=== PATIENT | female | born 1955 | race Caucasian/White ===

== ENCOUNTER → 2016-07-14 | Outpatient (CLI) | payer BC ==
[~2016-07-14] MED LIST: ALBU0.08 INH; ALBU1AER9 INH; LEVO100T7 PO; SYMIN160 INH
== END | disposition home or self-care (01) ==
LOC: C.PATHSPEC 11:38
PROVIDERS: ATTEND Obstetrics & Gynecology
DX: N84.1 Polyp of cervix uteri (principal)

== ENCOUNTER → 2016-07-14 | Outpatient (CLI) | payer BC | END | disposition home or self-care (01) | LOC: C.PAPS 11:46 | PROVIDERS: ATTEND Obstetrics & Gynecology | DX: Z01.419 Encounter for gynecological examination (general) (routine) without abnormal findings (principal) ==

== ENCOUNTER → 2016-09-01 | Outpatient (CLI) | payer BC ==
--- NOTE | 2016-09-01 14:53 | MAMMOGRAPHY REPORT ---
BILATERAL DIGITAL SCREENING MAMMOGRAM TOMOSYNTHESIS WITH CAD: 09/01/2016 CLINICAL HISTORY: Routine screening. Patient has no complaints. TECHNIQUE: Breast tomosynthesis in addition to standard 2D mammography was performed. Current study was also evaluated with a Computer Aided Detection (CAD) system. COMPARISON: Comparison is made to exams dated: 08/31/2015 mammogram, 02/26/2015 mammogram, 07/14/2014 mammogram, 12/15/2013 mammogram, 12/15/2013 stereotactic biopsy, and 11/25/2013 mammogram - [facility]. BREAST COMPOSITION: There are scattered areas of fibroglandular density in both breasts. FINDINGS: No suspicious masses, calcifications, or areas of architectural distortion are noted in e ither breast. There has been no significant interval change compared to prior exams. A biopsy marke r clip is again noted in the right central breast. Bilateral benign-appearing calcifications are no t significantly changed. IMPRESSION: ACR BI-RADS CATEGORY 2: BENIGN There is no mammographic evidence of malignancy. A 1 year screening mammogram is recommended. The p atient will receive written notification of the results. Approximately 10% of breast cancers are not detected with mammography. A negative mammographic repor t should not delay biopsy if a clinically suggestive mass is present. Clau Hayden M.D. /:09/01/2016 12:26:53 Hay Stacker Operator: Hui VANESSA(R)(M), [facility] letter sent: Normal 1/2 BI-RADS Code: ACR BI-RADS Category 2: Benign
== END | disposition home or self-care (01) ==
LOC: C.MAMM 08:52
PROVIDERS: ATTEND Internal Medicine
DX: Z12.31 Encounter for screening mammogram for malignant neoplasm of breast (principal)

== ENCOUNTER → 2017-02-05 | Outpatient (CLI) | payer BC | END | disposition home or self-care (01) | LOC: C.RDSM 13:02 | PROVIDERS: ATTEND Physical Medicine & Rehabilitation Sports Medicine | DX: M17.0 Bilateral primary osteoarthritis of knee (principal) ==

== ENCOUNTER → 2017-03-12 | Outpatient (CLI) | payer BC ==
--- NOTE | 2017-03-12 13:02 | DIAGNOSTIC IMAGING REPORT ---
CHEST 2 VIEWS ROUTINE CLINICAL HISTORY: ASTHMA EXACERBATION COMPARISON STUDY: 04/05/2015 FINDINGS: The cardiac and mediastinal contours remain stable. There is no failure. There is no focal pulmonary consolidation. There are no pleural effusions. There is an old right-sided rib fracture. Postsurgical changes are present within the cervical spine.[ IMPRESSION: No active disease in the chest. Electronically signed by: William Campbell M.D. 03/12/2017 1:00 PM Dictated Date/Time: 03/12/2017 1:00 PM
== END | disposition home or self-care (01) ==
LOC: C.RAD1850 12:16
PROVIDERS: ATTEND Internal Medicine
DX: J45.901 Unspecified asthma with (acute) exacerbation (principal)

== ENCOUNTER 2025-02-04 05:17 | Observation (INO) ==
--- NOTE | 2024-12-25 13:22 | PAT Medication Instructions ---
Medication Instructions Date of Service December 25, 2024 Home Medications Medication Instructions Recorded albuterol sulfate 90 mcg/actuation 1 inh inhalation QID PRN shortness 11/28/22 aerosol inhaler of breath or wheezing #18 grams albuterol sulfate 2.5 mg/3 mL 2.5 mg (3 mL) inhalation Q4H PRN 02/27/24 (0.083 %) solution for nebulization shortness of breath or wheezing #75 mL levothyroxine 112 mcg tablet 112 mcg PO QAM #90 tabs 04/29/24 azelastine 137 mcg (0.1 %) nasal 2 spray intranasal BID PRN nasal 05/05/24 spray congestion #30 mL bupropion HCl 150 mg 24 hr tablet, 150 mg PO QAM #90 tabs 10/13/24 extended release (Wellbutrin XL) ascorbic acid (vitamin C) 500 mg capsule 500 mg PO QAM flurbiprofen 100 mg tablet 100 mg PO BID PRN Pain multivitamin 1 tab PO QAM albuterol sulfate 90 mcg/actuation aerosol inhaler 1 inh inhalation QID PRN shortness of breath or wheezing albuterol sulfate 2.5 mg/3 mL (0.083 %) solution for nebulization 2.5 mg (3 mL) inhalation Q4H PRN shortness of breath or wheezing levothyroxine 112 mcg tablet 112 mcg PO QAM azelastine 137 mcg (0.1 %) nasal spray 2 spray intranasal BID PRN nasal congestion amitriptyline 25 mg tablet 25 mg PO HS gabapentin 300 mg capsule 300 mg PO TID bupropion HCl 150 mg 24 hr tablet, extended release (Wellbutrin XL) 150 mg PO QAM fluticasone propionate 50 mcg/actuation nasal spray,suspension 2 spray intranasal DAILY PRN Congestion 0 cholecalciferol (vitamin D3) 25 mcg (1,000 unit) capsule (Vitamin D3) 25 mcg PO QAM cyanocobalamin (vitamin B-12) 2,500 mcg sublingual tablet (Vitamin B-12) 2,500 mcg sublingual DAILY sulfamethoxazole 800 mg-trimethoprim 160 mg tablet (Bactrim DS) 1 tab PO BID UTI Continue as directed fluticasone propionate 50 mcg/actuation nasal spray,suspension 2 spray i ntranasal DAILY PRN Congestion (if needed) sulfamethoxazole 800 mg-trimethoprim 160 mg tablet (Bactrim DS) 1 tab PO BID UTI ASK your surgeon for instructions flurbiprofen 100 mg tablet 100 mg PO BID PRN Pain DO NOT take the morning of surgery ascorbic acid (vitamin C) 500 mg capsule 500 mg PO QAM multivitamin 1 tab PO QAM cholecalciferol (vitamin D3) 25 mcg (1,000 unit) capsule (Vitamin D3) 25 mcg PO QAM cyanocobalamin (vitamin B-12) 2,500 mcg sublingual tablet (Vitamin B-12) 2,500 mcg sublingual DAILY Take morning of surgery With a small sip of water, OTHERWISE NOTHING TO EAT OR DRINK AFTER MIDNIGHT: albuterol sulfate 90 mcg/actuation aerosol inhaler 1 inh inhalation QID PRN shortness of breath or wheezing (use if needed; please bring with you to hospital day of surgery if possible) albuterol sulfate 2.5 mg/3 mL (0.083 %) solution for nebulization 2.5 mg (3 mL) inhalation Q4H PRN shortness of breath or wheezing (if needed) levothyroxine 112 mcg tablet 112 mcg PO QAM azelastine 137 mcg (0.1 %) nasal spray 2 spray intranasal BID PRN nasal congestion (if needed) gabapentin 300 mg capsule 300 mg PO TID bupropion HCl 150 mg 24 hr tablet, extended release (Wellbutrin XL) 150 mg PO QAM Take evening before surgery albuterol sulfate 90 mcg/actuation aerosol inhaler 1 inh inhalation QID PRN shortness of breath or wheezing (if needed) albuterol sulfate 2.5 mg/3 mL (0.083 %) solution for nebulization 2.5 mg (3 mL) inhalation Q4H PRN shortness of breath or wheezing (if needed) azelastine 137 mcg (0.1 %) nasal spray 2 spray intranasal BID PRN nasal congestion (if needed) amitriptyline 25 mg tablet 25 mg PO HS gabapentin 300 mg capsule 300 mg PO TID Other Notes If you have any questions please call us at [phone] or [phone] or [phone] or [phone]
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
--- NOTE | 2025-02-03 15:59 | History & Physical Bridge Note ---
Date of Service February 03, 2025 History & Physical Bridge Note I have examined the patient, reviewed the History & Physical and in the interval since the performance of the History & Physical I have noted the following changes of clinical significance:Consent and site verified. Also discussed need for being compliant with rehab so she prevents arthrofibrosis. Also needs to get up and move to prevent DVT PE and to take her medications. She understands risk and consequences of infection and wound care. He is to care for her veins in her skin. no changes noted
[2025-02-04] MEDS: LR 60ML/HR IV SCH (05:55)
[2025-02-04] MEDS ORDERED: BUPIVACAINE 0.5 % 5 MG/1 ML PF 10ML VIAL ONE (06:33)
[2025-02-04] MEDS ORDERED: ROPIVACAINE 0.5% 5 MG/ML 30 ML VIAL ONE (06:33)
[2025-02-04] MEDS ORDERED: ONDANSETRON INJ 2 MG/ML 2 ML VIAL ONE (06:38)
[2025-02-04] MEDS ORDERED: PROPOFOL IV EMULSION 10 MG/ML 20 ML VIAL IV ONE (06:38)
[2025-02-04] MEDS ORDERED: MIDAZOLAM HCL 1 MG/ML 2ML VIAL ONE ×2 (06:39→06:52)
[2025-02-04] MEDS: TRANEXAMIC ACID 1,000 MG **IV Pre-op IV SCH (06:45)
[2025-02-04] MEDS: ceFAZolin 3000MG 3,000 MG/72.5 ML BAG IV SCH (07:02)
[2025-02-04] MEDS ORDERED: LIDOCAINE 2% 2 ML VIAL/AMP(20MG/ML) INFIL ONE (07:04)
[2025-02-04] MEDS ORDERED: KETAMINE HCL 10MG/ML SYR ONE (07:18)
[2025-02-04] MEDS ORDERED: ePHEDrine sulfate 50 MG/5 ML SYR ONE (07:23)
[2025-02-04] MEDS ORDERED: PHENYLEPHRINE 100MCG/ML 5ML SYR ONE (07:23)
[2025-02-04] MEDS: ORTHO JOINT ANESTHETIC ONE (07:32)
[2025-02-04] MEDS ORDERED: DEXAMETHASONE SOD INJ 4 MG/ML VIAL ONE (07:46)
[2025-02-04] MEDS ORDERED: ACETAMINOPHEN 1000 MG/100 ML IV IV ONE (08:35)
[2025-02-04] MEDS: ROPIV 0.5% 246mg, Ketorolac 30mg, EPINEPHrine 0.5mg in NSS INFIL SCH (08:43)
--- NOTE | 2025-02-04 08:46 | Post Operative Brief Note ---
Immediate Post Op Note Date of Surgery February 04, 2025 Pre & Post Diagnosis Operation Date: 02/04/25 07:00 <No data on this case meets the specified criteria> Osteoarthritis right knee tricompartmental pre and postop diagnosis same I identified the patient and participated in the time-out.: Yes Procedure Operation Date: 02/04/25 07:00 <No data on this case meets the specified criteria> Cemented right total knee replacement Surgeon Miller Tello MD [employer]ing [employer] Operator [facility] or fellow available Estimated Blood Loss 50 Findings Consistent with Post-Op Diagnosis Tricompartmental osteoarthritis Fluids 800 cc of fluid Complications None
--- NOTE | 2025-02-04 08:51 | Operative Report ---
Post Operative Report Pre & Post Diagnosis Operation Date: 02/04/25 07:00 <No data on this case meets the specified criteria> Tricompartmental osteoarthritis right knee pre and postop diagnosis same I identified the patient and participated in the time-out.: Yes Procedure Operation Date: 02/04/25 07:00 <No data on this case meets the specified criteria> Cemented right total knee replacement Surgeon Miller Tello MD [employer] Agent [place] no resident or fellow available Estimated Blood Loss 50 Findings Consistent with Post-Op Diagnosis Tricompartmental osteoarthritis Fluids 800 cc of fluid Specimens Bone pathology Drains None Complications None Indications Severe pain failed conservative management multiple years of injections oral anti-inflammatories Description of Procedure After the patient was appropriate notified site verified consent verified antibiotics confirmed to be given the right lower extremity was prepped and draped use routine fashion. Midline approach was utilized for the knee size and length of the incision appropriate for her physical size. Full-thickness flaps raised. Parapatellar arthrotomy performed. Extensive synovectomy completed the patella was encased in scar tissue required extensive mobilization. Knee was then able to be flexed with patella everted. Marginal osteophytes resected the box was filled with completely without bone. This was resected out with an osteotome. Distal femur was then entered. Tibia was then subluxated after the cruciates were resected and the menisci remnants resected. There was grade 4 disease throughout all 3 compartments. Extensive synovectomy was performed appropriate releases performed. Distal femur was then resected 11 mm proximal tibia 4 mm and the extension gap was excellent with a 5 or 6. Box cut was then made and the size 6 femur fit well. Tibia was subluxated and the size 4 tibia revision tray was utilized. It was rotating platform. Appropriate broaching and reaming was done for that. Trial reduction was then carried out with a 6 it was excellent increased and midrange stability versus the 5 so we went with a 6. The patella tracked well it was everted and resected leaving 14 to 15 mm seating holes made in the 38 button tracked well. Ortho mix was then injected all about the knee at the trial and was removed the knee was Pulsavac and soaked in Betadine for 3 minutes and then the permanent cemented into position tibia femur patella in that order at 12 minutes the tourniquet deflated minor bleeding points controlled electrocautery at 14 minutes knee was flexed no cement removal was required. Wound was irrigated with the Pulsavac Betadine and then the permanent liner seated knee reduced and closed at 40 degrees of flexion with #2 Vicryl 2-0 Vicryl and stainless to clips. Appropriate dressing was applied including a rubber Desai cotton compressive dressing based on her size and venous insufficiency. Attempted contact Nghia was done at [phone] went to voicemail. Left a voicemail. Summary of implants size 6 right femur size 4 rotating platform revision tray size 38 patella size 6.6 rotating platform stabilized polyethylene insert this is the ATT [employer]NE DeP[employer]s total knee system. EBL was 50 cc crystalloid 800 cc bone pathology pending DVT PE prophylaxis to begin tomorrow. I attest to the content of the Intraoperative Record and any orders documented therein. Any exceptions are noted below.
--- NOTE | 2025-02-04 08:51 | Orthopedic Progress Note ---
Date of Service February 04, 2025 Orthopedic Progress Note Patient underwent total knee replacement tolerated well had needed general anesthetic spinal did not work upon awakening moved all extremities. Denies chest pain shortness of breath fever chills nausea vomit headache. Postop x- rays pending. Attempt to contact family Nghia [phone] was on not successful went to [employer] left a message.
--- NOTE | 2025-02-04 08:53 | Discharge Summary ---
Date of Service February 05, 2025 Admission HPI Per Admitting Provider Osteoarthritis tricompartmental right knee Principal Diagnosis Status post total knee replacement for osteoarthritis right knee Discharge Data Allergies Allergy/AdvReac Type Severity Reaction Status Date / Time pollen extracts Allergy Intermediate ITCHY Verified 02/04/25 05:32 EYES, SNEEZING, CONGESTION Vaccinations None Consultations None Procedures Performed Operation Date: 02/04/25 07:00 <No data on this case meets the specified criteria> Cemented total knee replacement right Ordered Studies 02/04/25 05:00 US - OR guided needle placemen Routine X-rays bone pathology laboratory work Hospital Course (1) Arthrofibrosis of knee joint: (2) Status post right knee replacement: Care plan for total knee replacement Plan Care plan for total knee replacement Total Time Total Time Spent Total Time Spent (In Minutes): 10 Discharge Plan Discharge Items Patient Disposition: Home - Home Health Services Reason For Visit: Right Knee Osteoarthritis Discharge Diagnosis: Right knee s/p total knee replacement Condition on Discharge: Good Activity: Per Instructions section Lifting: Wait until after follow-up appointment Bathing: Keep incision dry Sexual Activity: Wait until after follow-up appointment Exercise/Sports: Wait until after follow-up appointment Driving/Machine Use: No driving until cleared by Dr. Tello Weightbearing: Full weightbearing Non-emergency contact: Surgeon Call non-emergency contact if: you have any medication questions, your pain is not controlled, your temperature is above 101, your wound has increased redness, your wound has increased drainage and your wound pain has increased Follow-up/Referrals: Hugo Vang MD [Primary Care Provider] - Quang Matthews PA-C [Physician First Aid Instructor] - 02/19/25 Diet: Carb Consistent or DM2 Addtl Attending Provider Instructions: New Medicine: * You will likely be taking one or more of these medications: 1. Percocet - Take, as directed, when you need it, every four to six hours to control your pain. 2. Iron Sulfate - Take 1x each day for the month after surgery to help you replace the blood lost during surgery. 3. Eliquis - Thins your blood to lessen the chance of forming a blood clot. * The most common side effects of pain medicine and iron are nausea and constipation. If nausea or constipation is too much of a problem or if you have any questions about your new medicines or doses, call [facility] at . We will try to help you manage these issues. "VERY IMPORTANT TO READ AND REVIEW" Blood Clots and Blood Thinning Medicine: * You are given Eliquis during the immediate post-operative period to lessen the risk of blood clots forming in your legs and/or lungs. It is usually given for six weeks after surgery. Pain: * The immediate post-operative period after knee replacement surgery is often quite painful. * You are given a prescription for pain medicine. You should take it, as directed, when you need it, especially before physical therapy and before going to bed. Pain that interferes with sleep is very common and can last several months. * You will likely need pain medicine for the first four to six weeks. It will not stop all of the pain. The pain will lessen and as you feel better, you may change to milder pain medicine such as Tylenol. * The most common side effects of pain medicine are nausea and constipation, so don't take more than you need. Physical Therapy: * You will have physical therapy two or three times each week for four to six weeks after your surgery in order to regain your knee range of motion and to retrain your knee to work properly. * It is just as important to make sure you are getting your knee perfectly straight as it is to regain your knee bend. * Taking a pain pill an hour before therapy can help you have a more productive and comfortable therapy session if needed. Home Exercise: * You were shown a series of exercises (heel props, heel slides, etc.) in the hospital. Do these exercises three to four times each day including the exercises you were shown in physical therapy. Walking: * Get up and walk several times each day. For the first four weeks, try not to stand or walk for more than one hour at a time. If you do stand or walk for more than one hour, you will not hurt anything, but your knee and leg will likely swell. * As you feel comfortable, you may change from the walker or crutches to a cane and then to independent walking. SELF CARE INSTRUCTIONS AFTER TOTAL KNEE REPLACEMENT A. You may need to continue a physical therapy program after discharge from the hospital. There are several options available to you. Your doctor will assist you in selecting the best one for you. 1. An out-patient facility 2 to 3 times a week for therapy or home therapy. 2. Continue working on all exercises taught to you in the hospital. Your goals should be to increase bending of your knee to 90 degrees and beyond and to fully straighten your knee. B. You may progress at your own pace from walking with a walker or crutches to a cane; then to no assistive devices. C. Make walking a part of your daily routine. Be up as much as comfortable with rest periods throughout the day. Rest with leg elevation is very important. Use the ice wrap frequently for the first 3-4 weeks. D. There are no restrictions on activities. 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 E. Wear the long elastic stockings (KARIE hose) 20 hours a day for six weeks after surgery. They can be removed several times a day for laundering and for a shower. F. Do not place a pillow behind your knee when resting. A pillow at your ankle is okay. G. You may return to previous diet. VERY IMPORTANT TO READ AND REVIEW A. Take Eliquis (blood thinning medication) as directed by your doctor. B. There are a few signs you need to watch for after you are home. Call [facility] if you notice any of the followin. Increased severe knee pain. Some pain is expected especially when you exercise. 2. Increased swelling in your leg or knee; pain or swelling of the calf muscle in either lower leg. 3. Any fluid drainage from the incision. 4. Shortness of breath or chest pain. C. Please call [facility] at if you have any concerns or questions about your operation or recovery. The doctor or his nurse will return your call promptly. D. You must take antibiotics before dental work, bladder, bowel or other surgery. Call the office to obtain a prescription at least 2 days prior to your appointment. * CALL IF INCREASED PAIN, REDNESS, DRAINAGE OR FEVER GREATER THAT 101. * Sutures should be removed 12-14 days after surgery unless you are on chronic steroids, then it will be 14-18 days after surgery. Call your doctor if: * Temperature above 101 degrees F. * Pain not relieved by pain medicine ordered. * Increased drainage or redness from incision. * Notify your doctor with any questions or concerns. Start your Eliquis tonight with dinner. Take it 2x day to prevent clots use your walker for ambulation use the knee immobilizer when out of bed today and Sunday. It can be discontinued entirely on Sunday morning Pending Studies at Discharge: Yes Studies:: bone pathology Stand-Alone Forms: My [facility] [place] [employer], Smoking Cessation Medications and DC Order Prescriptions: No Action albuterol sulfate 90 mcg/actuation HFA aerosol inhaler 1 inh inhalation QID PRN (Reason: shortness of breath or wheezing) Qty: 18 1RF levothyroxine 112 mcg tablet 112 mcg PO QAM Qty: 90 3RF multivitamin Tablet 1 tab PO QAM Rx Instructions: PER PT "NOT LATELY, D/T FEELING SICK". ascorbic acid (vitamin C) 500 mg capsule 500 mg PO QAM Rx Instructions: PER PT "NOT LATELY, D/T FEELING SICK". Wegovy 0.25 mg/0.5 mL pen injector 0.25 mg subcut Q7D 0RF Patient Comments: wednesdays albuterol sulfate 2.5 mg /3 mL (0.083 %) solution for nebulization 2.5 mg inhalation Q4H PRN (Reason: shortness of breath or wheezing) Qty: 75 0RF fluticasone propionate 50 mcg/actuation spray,suspension 2 spray intranasal DAILY PRN (Reason: Congestion) Rx Instructions: administer into each nostril bupropion HCl [Wellbutrin XL] 150 mg tablet extended release 24 hr 150 mg PO QAM Qty: 90 1RF amitriptyline 25 mg tablet 25 mg PO HS gabapentin 300 mg capsule 300 mg PO TID Patient Comments: usually only takes 2 daily azelastine 137 mcg (0.1 %) spray,non-aerosol 2 spray intranasal BID PRN (Reason: nasal congestion) Qty: 30 11RF Rx Instructions: administer into each nostril flurbiprofen [Lurbiro] 100 mg tablet 100 mg PO BID PRN (Reason: Pain) cyanocobalamin (vitamin B-12) [Vitamin B-12] 2,500 mcg Tablet, Sublingual 2,500 mcg SUBLINGUAL DAILY cholecalciferol (vitamin D3) [Vitamin D3] 25 mcg (1,000 unit) Capsule 25 mcg PO QAM Admission Data Admit Date/Time: 02/04/25 09:14 Attending Provider: Miller Tello Admit Provider: Miller Tello Primary Care Provider: Hugo Vang V.
--- NOTE | 2025-02-04 09:02 | Operative Report ---
Post Operative Report Pre & Post Diagnosis Operation Date: 02/04/25 07:00 Pre-Op Diagnosis: Right Knee Osteoarthritis Post-Op Diagnosis: Right Knee Osteoarthritis I identified the patient and participated in the time-out.: Yes Procedure Operation Date: 02/04/25 07:00 Actual Procedures p Right Total Knee Arthroplasty(Right) - Miller Tello MD Surgeon RALF Tello MD Evp Chief Exploration Officer [facility] no resident or fellow available Estimated Blood Loss 50 Findings Consistent with Post-Op Diagnosis see operative report Specimens see operative report Drains none Complications none Disposition Accompanied Patient To Recovery: Yes Indications This 69 year old female presented to the office with complaints of persisting right knee pain. She had tried conservative care measures including activity modification, oral medication, and injection therapy, without improvement. She elected to proceed with surgical invention after being educated about potential risks and outcomes. Preoperative imaging has been obtained. Description of Procedure The patient was taken the operating room where she was given general anesthesia. She was prepped and draped in the usual sterile fashion. Please see Dr. Tello's operative report for specifics of the procedure. I was present for the entire case from initial patient positioning through final wound closure. Assistance was provided in tissue retraction, hemostasis, trial implant placement, final implant placement, and final wound closure. The patient was taken to the operating room in satisfactory condition. I attest to the content of the Intraoperative Record and any orders documented therein. Any exceptions are noted below.
--- NOTE | 2025-02-04 09:18 | XRay Report ---
XR knee RT 1 or 2V routine CLINICAL HISTORY: S/P R TKA COMPARISON: 01/14/2025 FINDINGS: Right knee prosthesis shows no hardware complication. There is expected soft tissue gas. S kin cyndy are present. IMPRESSION: Unremarkable postoperative exam. ACT 112: Negative or not required by law. Electronically signed by: Romario Trujillo M.D. 02/04/2025 9:17 AM
[2025-02-04] MEDS ORDERED: ATROPINE SULFATE 0.1 MG/ML 10ML SYR IV PRN (09:42)
[2025-02-04] MEDS ORDERED: PROMETHAZINE HCL 6.25 MG in SODIUM CHLORIDE 0.9% 50 ML IV PRN (09:42)
[2025-02-04] MEDS ORDERED: HYDROmorphone INJ 2 MG/ML SYR/VIAL IV PRN (09:42)
[2025-02-04] MEDS ORDERED: ONDANSETRON INJ 2 MG/ML 2 ML VIAL IV PRN ×2 (09:42→10:38)
[2025-02-04] MEDS: KETOROLAC TROMETHAMINE 15 MG/ML VIAL IV ONE (10:09)
[2025-02-04] MEDS: KETOROLAC 30 MG/ML VIAL ONE (10:09)
[2025-02-04] MEDS ORDERED: FLUTICASONE PROPIONATE NA SPR 16 GM BTL NAE PRN (10:38)
[2025-02-04] MEDS ORDERED: AZELASTINE HCL 0.1% NASAL 200 SPRAYS/27,400 MCG BTL NAE PRN (10:38)
[2025-02-04] MEDS ORDERED: NALOXONE HCL 0.4 MG/1 ML VIAL/CARP IV PRN (10:38)
[2025-02-04] MEDS ORDERED: METOCLOPRAMIDE HCL INJ 5 MG/ML 2 ML VIAL IV PRN (10:38)
[2025-02-04] MEDS ORDERED: ALBUTEROL HFA 8 GM INHALER INH PRN (10:38)
[2025-02-04] MEDS ORDERED: ALBUTEROL 0.083% NEBU SOLN 3 ML VIAL INH PRN (10:38)
[2025-02-04] MEDS ORDERED: MAGNESIUM HYDROXIDE SUSP 30 ML UDC PO PRN (10:38)
[2025-02-04] MEDS ORDERED: diphenhydrAMINE 50 MG/ML VIAL IV PRN (10:38)
[2025-02-04] MEDS ORDERED: ALUMINUM/MAGNESIUM SUSP 30 ML UDC PO PRN (10:38)
--- NOTE | 2025-02-04 11:31 | Anesthesiology Progress Note ---
Date of Service February 04, 2025 Anesthesia Post Procedure Vital Signs Vital Signs: Temp Pulse Pulse Resp BP Pulse Ox O2 Del Method 02/04/25 11:22 36.5 C 77 16 107/71 95 Room Air 02/04/25 10:30 36.6 C 71 14 97/57 L 95 Nasal Cannula 02/04/25 10:20 85 14 103/68 98 Nasal Cannula 02/04/25 10:10 87 15 103/63 97 Nasal Cannula 02/04/25 10:00 36.4 C L 80 14 109/64 95 Nasal Cannula 02/04/25 09:50 77 13 104/70 94 Nasal Cannula 02/04/25 09:40 78 15 112/64 97 Oxymask 02/04/25 09:30 77 18 100/62 95 Oxymask 02/04/25 09:20 76 19 108/58 L 97 Oxymask 02/04/25 09:10 75 16 110/61 99 Oxymask 02/04/25 09:05 90 20 93/52 L 96 Oxymask 02/04/25 09:01 36.0 C L 70 12 74/59 L 98 Oxymask 02/04/25 05:42 36.6 C 69 20 122/78 97 Room Air O2 Flow Rate 02/04/25 11:22 02/04/25 10:30 2 02/04/25 10:20 2 02/04/25 10:10 2 02/04/25 10:00 2 02/04/25 09:50 2 02/04/25 09:40 3 02/04/25 09:30 3 02/04/25 09:20 4 02/04/25 09:10 6 02/04/25 09:05 6 02/04/25 09:01 6 02/04/25 05:42 Pain Intensity Right Knee: Pain Intensity: 6 Transfer of Care Handoff Completed per policy Notes Mental Status: alert / awake / arousable and participated in evaluation Patient Amnestic to Procedure: Yes Nausea / Vomiting: adequately controlled Pain: adequately controlled Airway Patency, RR, SpO2: stable & adequate BP & HR: stable & adequate Hydration State: stable & adequate Anesthetic Complications: no major complications apparent
[2025-02-04] MEDS: KETOROLAC TROMETHAMINE 15 MG/ML VIAL IV SCH (11:32)
[2025-02-04] MEDS: SODIUM CHLORIDE 0.9% 1,000 ML IV SCH (11:32)
[2025-02-04] MEDS: ACETAMINOPHEN 500 MG TAB PO SCH (13:33)
[2025-02-04] MEDS: GABAPENTIN 300 MG CAP PO SCH (13:37)
--- NOTE | 2025-02-04 14:06 | Orthopedic Progress Note ---
Date of Service February 04, 2025 Assessment & Plan Admission and Anticipated Discharge Date Admission Date: February 04, 2025 Orthopedic Progress Note Postop afternoon check. She is doing well denies chest pain shortness of breath fever chills nausea having a headache. Vital signs are stable she is afebrile. Neurovascular check femoral sciatic nerve is normal. Wound dressing clean dry and intact. Postop x-rays look excellent. Assessment doing well continue care pathway initiate exercises mobilize. Discharge in a.m. if does well overnight.
[2025-02-04] MEDS: FERROUS GLUCONATE 324 MG TAB PO SCH (17:14)
[2025-02-04] MEDS: ASCORBIC ACID 500 MG TAB PO SCH (17:14)
[2025-02-04] MEDS: DOCUSATE SODIUM 100 MG CAP PO SCH (20:07)
[2025-02-04] MEDS: AMITRIPTYLINE HCL 25 MG TAB PO SCH (20:07)
[2025-02-04] MEDS: SENNA 8.6 MG TAB PO SCH (20:07)
[2025-02-05] MEDS: HYDROmorphone INJ 0.5 MG/0.5 ML SYR IV PRN (05:01)
[2025-02-05] MEDS: LEVOTHYROXINE SODIUM 112 MCG TABLET PO SCH (05:54)
[2025-02-05 06:36] LABS: Hematocrit (blood only) 36.1 % (37.0-47.0); Hemoglobin 12.3 g/dl (12.0-16.0); Mean Corpuscular Hemoglobin 30.8 pg (25.0-34.0); Mean Corpuscular Volume 90.3 fL (80.0-100.0); Platelet Count 173 K/uL (130-400); RDW Standard Deviation 41.8 fL (36.4-46.3); Red Blood Count 4.00 M/uL (4.20-5.40); White Blood Count 9.35 K/ul (4.8-10.8)
--- NOTE | 2025-02-05 07:01 | Orthopedic Progress Note ---
Date of Service February 05, 2025 Assessment & Plan Admission and Anticipated Discharge Date Admission Date: February 04, 2025 Orthopedic Progress Note Postop day #1 status post right total knee replacement. She is complaining that her muscles are sore and she has poor control of lifting her leg. I told her that that was expected based on the fact the block is working off and she needs to continue to develop confidence in the move and to get out of bed so she prevents complications such as DVT PE and pneumonia. She states she understands. She did not like the heel roll. I told her that was critical to keep her knee from bouncing back to the 10 degree flexion contracture she had. She states she understands. Vital signs are stable she is afebrile. Neurovascular check femoral sciatic nerve is normal. Wound dressing clean dry and intact. Calves nontender. Hematocrit stable at 36. Assessment overall doing well from the measurable's. She needs to have the measurable motivation and increased passion to perform her exercises to get out of bed and move. She states she will do this. She can be discharged home today after PT OT. Discontinue AKA teds as they do not fit appropriately placed BK teds. Needs appropriate dressing. Above the knee can put on fishnet to hold the dressing in the place. Discharge as well with 20 mg prednisone daily for 10 days.
[2025-02-05 07:05] LABS: Anion Gap 5.0 (3-11); Blood Urea Nitrogen 17.0 mg/dl (6-23); Calcium 8.2 mg/dl (8.6-10.3); Carbon Dioxide 29.0 mmol/L (21-32); Chloride 105.0 mmol/L (98-107); Creatinine Clr Calc Pharmacy 96.3 ml/min; Glucose 96.0 mg/dl (70-99(Fasting)); Potassium 4.5 mmol/L (3.5-5.1); Sodium 139.0 mmol/L (136-145)
[2025-02-05] MEDS: APIXABAN 2.5 MG TAB PO SCH (08:02)
[2025-02-05] MEDS: MULTIVITAMIN TAB PO SCH (08:02)
[2025-02-05] MEDS: dexAMETHasone 10 MG in SYRINGE 0 ML IV SCH (08:02)
--- NOTE | 2025-02-05 09:30 | Orthopedic Progress Note ---
Date of Service February 05, 2025 Assessment & Plan (1) Status post right knee replacement: Plan: The patient was educated regarding today's findings. Her dressing was changed. Knee-high Froylan stocking was applied along with an Damian wrap extending above the knee. She may leave this on through the weekend. It can be changed by home health on Sunday if needed for soiling. Continue the knee immobilizer today and tomorrow. It can be discontinued entirely on Sunday morning. Start her Eliquis this evening. First dose was given here this morning. She has home health set up through [facility], starting tomorrow morning. Follow-up with me in the office on February 19 as scheduled for staple removal. Prescriptions for Eliquis and Percocet were sent to her pharmacy. Written discharge instructions were provided. Call the office with any other concerns or questions. Admission and Anticipated Discharge Date Admission Date: February 04, 2025 Subjective This 69-year-old female is seen today in her room. She is 1 day status post right total knee arthroplasty. She states she is doing fine. Her pain increased around 3 AM this morning. It has been controlled with oral meds. She denies any nausea, vomiting, diarrhea, abdominal pain, chest pain, or shortness of breath. She has already eaten breakfast. She is waiting for PT. She feels ready to be discharged to home. No other complaints. Review of Systems Review of Systems: Unchanged from yesterday. Physical Exam Physical Exam: General: Well-developed, well-nourished, middle-aged female, in no acute distress. Sitting in the bedside chair. Alert and oriented. Skin: Warm and dry with good turgor. Postsurgical dressings are in place on the right leg. Upon removal, she has scant dried blood on her most inner dressings. There is no active bleeding. Uziel are in place. Wound edges are well- approximated. No erythema or warmth. No ecchymosis yet. Minimal edema. Musculoskeletal: The patient has intact motor function of her ankle and toes. She is able to perform a straight leg raise. She has nearly full terminal extension. She is bending beyond 50 degrees. Neurologic: Gross sensation is intact across the right leg by soft touch. Peripheral pulses are 2+. Results & Data Vital Signs (Past 12 Hours) Vital Signs Temp Pulse Resp BP Pulse Ox O2 Del Method 02/05/25 08:33 Room Air 02/05/25 07:03 37.0 C 85 16 115/70 96 Room Air 02/05/25 03:42 36.4 C L 80 19 104/61 94 Room Air 02/04/25 23:32 36.5 C 82 17 125/66 94 Room Air Laboratory Results CBC obtained this morning shows a white count of 9.35. H&H of 12.3 and 36.1. Platelets normal at 173,000. PRP shows normal electrolytes. Normal BUN and creatinine. Glucose this morning is 96.
[2025-02-05 12:05] VITALS: BP 110/72; PULSE 82; RESP 17; TEMP 98.1; O2SAT 95
== END 2025-02-05 12:44 | disposition home health service (06) ==
LOC: 3E 05:17 → ASU 05:17